=== PATIENT | female | born 1985 | race African-American/Black ===

== ENCOUNTER 2022-01-30 17:01 | Emergency (ER) | payer OTHER, SELFPAY ==
[2022-01-30 17:26] VITALS: BP 116/69; PULSE 76; RESP 16; TEMP 36.2; O2SAT 100
--- NOTE | 2022-01-30 18:17 | ED.SKABFB ---
HPI - Skin/Abscess/Foreign Bdy General Chief complaint: Skin/Abscess/Foreign Body Stated complaint: wound check Time Seen by Provider: 01/30/22 18:16 History of Present Illness HPI narrative: 6-year-old female presents to the emergency room for evaluation of multiple rashes on her lower extremities. Patient was seen at urgent care yesterday and was told that she had form of ringworm. Patient was prescribed 2 weeks of terbinafine. Presents today for second opinion. States the rash has been present for 4 days and is pruritic. Review of Systems Review of Systems: CONSTITUTIONAL: Denies fever, chills, or sweats. EYES: Denies visual changes, redness, or discharge. ENT: Denies rhinorrhea, congestion, sore throat, or otalgia. CARDIOVASCULAR: Denies chest pain, palpitations, or edema. RESPIRATORY: Denies cough or dyspnea. GASTROINTESTINAL: Denies abdominal pain, nausea, vomiting, or diarrhea. GENITOURINARY: Denies dysuria or hematuria. SKIN: Reports pruritic rash on legs MUSCULOSKELETAL: Denies back pain, joint pain, or myalgia. NEUROLOGIC: Denies headache, numbness, dizziness, or weakness. PSYCHIATRIC: Denies anxiety or depression. Exam Narrative: GENERAL: Well-appearing, well-nourished, no physical limitations, and in no acute distress. HEAD: Normocephalic, atraumatic. EYES: Conjunctivae normal, PERRLA and EOMI. CHEST: Clear to auscultation. No respiratory distress. No wheezes rales or rhonchi. No tenderness. HEART: Regular rate and rhythm. No murmur heard. Normal peripheral pulses. EXTREMITIES: Normal range of motion. No edema. No clubbing or cyanosis SKIN: Erythematous, ovular/circular lesions with central clearing and raised borders on bilateral lower extremities NEURO: No focal deficits. Alert and oriented x3. MAEW. CN's II-XI intact bilaterally, normal gait PSYCH: Cooperative. Normal mood and affect. Course Vital Signs Vital signs: Vital Signs Temperature 36.2 C L 01/30/22 17:26 Pulse Rate 76 01/30/22 17:26 Respiratory Rate 16 01/30/22 17:26 Blood Pressure 116/69 01/30/22 17:26 Pulse Oximetry 100 01/30/22 17:26 Oxygen Delivery Room Air 01/30/22 17:26 Temperature 36.2 C L 01/30/22 17:26 Pulse Rate 76 01/30/22 17:26 Respiratory Rate 16 01/30/22 17:26 Blood Pressure 116/69 01/30/22 17:26 Pulse Oximetry 100 01/30/22 17:26 Oxygen Delivery Room Air 01/30/22 17:26 Discharge Plan Discharge Clinical Impression: Tinea corporis Patient Disposition: Home, Self-Care Condition: Stable Instructions: Antibiotic Form, Tinea Corporis (ED) Prescriptions: New terbinafine HCl 250 mg tablet 250 mg PO DAILY Qty: 30 0RF clotrimazole [Lotrimin AF (clotrimazole)] 1 % cream 1 applic topical BID Qty: 30 1RF Follow-up/Referrals: Hector,Porsche Murillo, [employer] MANAGER-[employer] [Primary Care Provider] - Stand Alone Forms: Work/School Release IP Time of Disposition: 18:18
[2022-01-30 18:36] VITALS: BP 118/66; PULSE 68; RESP 16; TEMP 36.3; O2SAT 98
[2022-01-30 18:53] LABS: Alanine Aminotransferase 13 U/L (6-35); Albumin Level 4.1 g/dL (3.5-5.1); Alkaline Phosphatase 56 U/L (38-126); Anion Gap 8 mmol/L (8-16); Aspartate Amino Transferase 15 U/L (14-36); Bilirubin,Total 0.3 mg/dL (0.2-1.3); Blood Urea Nitrogen 10 mg/dL (7-17); Calcium 9.1 mg/dL (8.4-10.2); Carbon Dioxide 26 mmol/L (22-30); Chloride 105 mmol/L (98-107); Estimated CRCL calculation 82 ml/min; Estimated Glomerular Filt Rate > 60; Glucose 110 mg/dL (65-110); Potassium 4.4 mmol/L (3.4-5.0); Sodium 139 mmol/L (137-145)
== END 2022-01-30 18:37 | disposition home or self-care (01) ==
PROVIDERS: Emergency Provider Nurse Practitioner Family; PCP Nurse Practitioner Family
DX: B35.4 Tinea corporis (principal)
CPT/HCPCS: 36415; 80053; 99283

== ENCOUNTER 2022-04-08 08:27 | Emergency (ER) | payer OTHER, SELFPAY ==
[2022-04-08 08:37] VITALS: BP 122/66; PULSE 74; RESP 16; TEMP 36.7; O2SAT 100
--- NOTE | 2022-04-08 09:09 | ED.SKABFB ---
HPI - Skin/Abscess/Foreign Bdy General Chief complaint: Skin/Abscess/Foreign Body Stated complaint: boil? Time Seen by Provider: 04/08/22 08:59 Source: patient Mode of arrival: ambulatory Limitations: no limitations History of Present Illness HPI narrative: This is a 36 year old female that presents to the ER for a possible ingrown hair. Reports a small raised bump in her left groin area. Reports the area has gone down some in size, but is painful to touch. Denies fever, redness or drainage. Related Data Allergies Allergy/AdvReac Type Severity Reaction Status Date / Time No Known Allergies Allergy Verified 04/08/22 08:41 Review of Systems Review of Systems: CONSTITUTIONAL: Denies fever SKIN: Reports ingrown hair All systems reviewed & are unremarkable except as noted in HPI and below PMFSH Past Medical History Medical History (Updated 04/08/22 @ 09:16 by Allison Mireles PA-C) No active medical problems Social History Social History (Updated 04/08/22 @ 09:12 by Allison Mireles PA-C) Substance use: never Exam Narrative: GENERAL: Well-appearing, well-nourished, and in no acute distress. HEAD: Normocephalic, atraumatic. EYES: EOMI. CHEST: Clear to auscultation. No respiratory distress. No wheezes rales or rhonchi HEART: Regular rate and rhythm. No murmur heard. Normal peripheral pulses. EXTREMITIES: Normal range of motion. No edema. Left groin area with small (1cm) raised area, mildly tender to palpation, no fluctuance or erythema of the area SKIN: Warm, dry, no rash. NEURO: No focal deficits. Alert and oriented x3. PSYCH: Normal mood and affect Course Vital Signs Vital signs: Vital Signs Temperature 98.1 F 04/08/22 08:37 Pulse Rate 74 04/08/22 08:37 Respiratory Rate 16 04/08/22 08:37 Blood Pressure 122/66 04/08/22 08:37 Pulse Oximetry 100 04/08/22 08:37 Oxygen Delivery Room Air 04/08/22 08:37 Temperature 98.1 F 04/08/22 08:37 Pulse Rate 74 04/08/22 08:37 Respiratory Rate 16 04/08/22 08:37 Blood Pressure 122/66 04/08/22 08:37 Pulse Oximetry 100 04/08/22 08:37 Oxygen Delivery Room Air 04/08/22 08:37 MDM - Skin/Abscess/Foreign Bdy MDM Narrative Medical decision making narrative: Patient presents to the ER for an area of swelling to the left groin. There is a very small (1cm) raised lesion, that is not fluctuant. No overt signs of infection at this time. Will have patient clean the area with mild soap and water and use warm compresses to the area. Will prescribed a topical antibiotic. She was instructed to follow up with her PCP. She was given warnings to return to the ER Critical Care Time Critical Care Time Critical Care Time: No Discharge Plan Discharge Clinical Impression: Ingrown hair Patient Disposition: Home, Self-Care Condition: Stable Instructions: Antibiotic Form, Folliculitis (ED) Additional Instructions: Return to the emergency department if you experience fever, redness and swelling of your wound, abnormal drainage from your wound, or any other symptoms that are concerning to you Do not shave the area. Clean the area with mild soap and water and apply warm compresses as needed. Apply antibiotic ointment to the area twice daily for one week Follow-up with your primary care doctor Prescriptions: New mupirocin 2 % ointment 1 applic topical BID Qty: 15 0RF No Action terbinafine HCl 250 mg tablet 250 mg PO DAILY Qty: 30 0RF clotrimazole [Lotrimin AF (clotrimazole)] 1 % cream 1 applic topical BID Qty: 30 1RF Follow-up/Referrals: Hector,Porsche Murillo, SAFETY TRAINER-BC [Primary Care Provider] - 3 Days
== END 2022-04-08 10:09 | disposition home or self-care (01) ==
LOC: ANHED 09:29
PROVIDERS: Emergency Provider Emergency Medicine; PCP Nurse Practitioner Family
DX: L73.1 Pseudofolliculitis barbae (principal)
CPT/HCPCS: 99283

== ENCOUNTER 2022-04-24 17:28 | Emergency (ER) | payer OTHER, SELFPAY ==
[2022-04-24 17:37] VITALS: BP 135/69; PULSE 77; RESP 16; TEMP 36.4; O2SAT 100
--- NOTE | 2022-04-24 18:27 | ED.SKABFB ---
HPI - Skin/Abscess/Foreign Bdy General Chief complaint: Skin/Abscess/Foreign Body Stated complaint: Vaginal Problems Time Seen by Provider: 04/24/22 18:27 Source: patient, RN notes reviewed and old records reviewed Mode of arrival: ambulatory Limitations: no limitations History of Present Illness HPI narrative: 36-year-old female presents to the [facility] with complaints of ?a boil? to the left groin area the last 3 weeks. Was seen in the ER, did not follow-up with primary care provider. Has been applying Bactroban. Onset (ago): week(s) (3) Related Data Allergies Allergy/AdvReac Type Severity Reaction Status Date / Time No Known Allergies Allergy Verified 04/24/22 17:40 Review of Systems Review of Systems: All systems reviewed & are unremarkable except as noted in HPI and below Constitutional: Constitutional: Reports no additional constitutional complaints Eyes: Eyes: Reports no additional eye complaints ENT: Reports system reviewed and no additional complaints, except as documented Cardiovascular: Cardiovascular: Reports no additional cardiovascular complaints, Denies chest pain and Denies dyspnea Respiratory: Respiratory: Reports no additional respiratory complaints, Denies chest congestion, Denies cough and Denies dyspnea Gastrointestinal: Gastrointestinal: Reports no additional gastrointestinal complaints, Denies abdominal pain, Denies nausea and Denies vomiting Musculoskeletal: Musculoskeletal: Reports no additional musculoskeletal complaints Integumentary/Breasts: Skin/Breast: Reports as per HPI Neurologic: Reports system reviewed and no additional complaints, except as documented Psychiatric: Psychiatric: Reports no additional psychiatric complaints Allergic/Immunologic: Allergic/Immunologic: Reports no additional allergic/immunologic complaints PMF Past Medical History Medical History No active medical problems Social History Social History Substance use: never Comments At the time of my signature, I reviewed and agree with the nursing past medical, surgical, social, and family history. There is no relevant family history pertinent to the patient complaint. Exam Const: General: cooperative, healthy appearing, comfortable, no acute distress, well developed, alert, average body habitus and well nourished Nutritional Appearance: average body habitus and well nourished Orientation/consciousness: patient oriented x3 Limitations: no limitations HENMT: Head: normal to inspection Ears: hearing grossly normal bilaterally and external ears normal Face/Nose/Sinus: Normal external nose present, Normal nares present, Normal nasal mucous membranes and turbinates present and normal facial exam Face and sinus: normal facial exam Mouth: Yes Normal oral and palatal mucosa present, Yes lip normal and Yes moist mucous membranes Throat: uvula not midline Eyes: General: appearance normal, both eyes and all related structures Alignment and Position: alignment normal Periorbital: periorbital findings normal Conjunctivae: conjunctivae normal Pupils: Equal, round and reactive pupils present EOM: EOMs intact bilaterally Neck: Neck: normal visual inspection, full ROM, no lymphadenopathy and no meningeal signs Chest: Chest palpation & inspection: normal inspection of the chest Resp: Effort & Inspection: normal respiratory effort and able to speak in complete sentences Auscultation: clear to auscultation bilaterally, no crackles, no rales, no rhonchi and no wheezes Cardio: Rate: regular rate Rhythm: regular rhythm GI: Inspection: normal to inspection GI Palp: No abdominal tenderness Back/Spine/Pelvis: Cervical Spine: cervical ROM normal Thoracic/Lumbar Spine: No thoracic spinal tenderness Skin: General skin exam: normal color and no rashes or lesions noted Rashes: no rashes Wounds: no wounds Othe
== END 2022-04-24 19:16 | disposition home or self-care (01) ==
PROVIDERS: Emergency Provider Nurse Practitioner; PCP Nurse Practitioner Family
DX: L02.214 Cutaneous abscess of groin (principal)
CPT/HCPCS: 10060; 87070; 87205; 99213; G0463

== ENCOUNTER 2022-04-29 18:56 | Emergency (ER) | payer OTHER, SELFPAY ==
[2022-04-29 19:16] VITALS: BP 120/62; PULSE 67; RESP 18; TEMP 36.6; O2SAT 97
--- NOTE | 2022-04-29 19:30 | ED.SKABFB ---
HPI - Skin/Abscess/Foreign Bdy General Chief complaint: Skin/Abscess/Foreign Body Stated complaint: ingrown hair Time Seen by Provider: 04/29/22 19:30 Source: patient and RN notes reviewed Mode of arrival: ambulatory Limitations: no limitations History of Present Illness HPI narrative: 36-year-old female presents concern for possible ingrown hair. Reports she has this ongoing for several weeks, she was seen in the emergency room in March and was given Bactroban, she re-presented to the [facility] 5 days ago and had the area incised and drained with purulence drainage and was given Bactrim. Her culture did not grow any bacteria. She reports she started noticing irritation in the area again today, she denies pain, drainage. Reports she felt a small bump. She denies current fever, chills, aches, sweats MD complaint: abscess/boil Related Data Allergies Allergy/AdvReac Type Severity Reaction Status Date / Time No Known Allergies Allergy Verified 04/29/22 19:37 Review of Systems Review of Systems: CONSTITUTIONAL: Denies malaise, chills, sweats, or fever. EYES: Denies redness, or discharge. ENT: Denies rhinorrhea, congestion, swollen lips, swollen tongue CARDIOVASCULAR: Denies chest pain, palpitations, or edema. RESPIRATORY: Denies cough or dyspnea. GASTROINTESTINAL: Denies abdominal pain, nausea, vomiting SKIN: Reports small irritated bump in her MUSCULOSKELETAL: Denies joint pain or myalgia. NEUROLOGIC: Denies headache. All systems reviewed & are unremarkable except as noted in HPI and below PMFSH Past Medical History Medical History No active medical problems Social History Social History Substance use: never Comments At time of signature, agree with nursing past medical, surgical, social and family history. There is no relevant family history pertinent to the presenting complaint Exam Narrative: GENERAL: Well-appearing, well-nourished, and in no acute distress. HEAD: Normocephalic, atraumatic. EYES: PERRLA, conjunctivae clear ENT: Mucous membranes moist. NECK: Supple. No lymphadenopathy CHEST: Clear to auscultation. No respiratory distress. HEART: Regular rate and rhythm. SKIN: Warm, dry. 1 cm x 0.5 cm raised, skin colored nodule with pinpoint amount of fluctuance noted in the fall of the left groin. NEURO: Alert and oriented x3. PSYCH: Normal mood and affect Course Course Emergency Course: Discussed options with patient, benefits and risks of opening the small area again with only a pinpoint amount of fluctuance, versus applying warm compresses and following up with General surgery for re-evaluation. There is currently no evidence of infection, no redness, warmth, tenderness. Patient would prefer to follow-up with general surgery not have the area opened today Patient is aware of diagnosis, understands and agrees to treatment plan. Anticipatory guidance given. Patient agrees to follow-up as directed and is aware of reasons to seek care at the emergency department. Portions of this record may have been created with voice recognition software Level of Care: Express Care Visit Vital Signs Vital signs: Reviewed. MDM - Skin/Abscess/Foreign Bdy MDM Narrative Medical decision making narrative: Exam findings show no acute concerns or changes; patient is non-toxic appearing and is in no distress. Patient is appropriate for outpatient treatment and follow-up. Differential Diagnosis Differential diagnosis: Likely abscess of skin or subcutaneous tissue, herpes zoster, cellulitis and other (Cyst, ingrown hair) Critical Care Time Critical Care Time Critical Care Time: No Discharge Plan Discharge Clinical Impression: Groin cyst Patient Disposition: Home, Self-Care Condition: Stable Instructions: Cyst (ED) Additional Instructions: Apply warm moist compress to the area, take ibuprofe
== END 2022-04-29 19:43 | disposition home or self-care (01) ==
PROVIDERS: Emergency Provider Nurse Practitioner; PCP Nurse Practitioner Family
DX: L72.9 Follicular cyst of the skin and subcutaneous tissue, unspecified (principal)
CPT/HCPCS: 99211; G0463

== ENCOUNTER 2022-07-03 16:41 | Emergency (ER) | payer OTHER, SELFPAY ==
[2022-07-03 16:48] VITALS: BP 124/57; PULSE 90; RESP 16; TEMP 36.4; O2SAT 100
--- NOTE | 2022-07-03 17:10 | ED.EAR ---
HPI - Ear Problem General Chief complaint: Ear Stated complaint: Right Ear Irritation Time Seen by Provider: 07/03/22 17:10 Source: patient, RN notes reviewed and old records reviewed Mode of arrival: ambulatory Limitations: no limitations History of Present Illness HPI Narrative: 36-year-old female presents to the [facility] with complaints of right ear pain since yesterday. Has been placing peroxide. Does use Q-tips. Related Data Allergies Allergy/AdvReac Type Severity Reaction Status Date / Time No Known Allergies Allergy Verified 07/03/22 16:44 Review of Systems Review of Systems: All systems reviewed & are unremarkable except as noted in HPI and below Constitutional: Constitutional: Reports no additional constitutional complaints Eyes: Eyes: Reports no additional eye complaints ENT: Reports as per HPI Cardiovascular: Cardiovascular: Reports no additional cardiovascular complaints, Denies chest pain and Denies dyspnea Respiratory: Respiratory: Reports no additional respiratory complaints, Denies chest congestion, Denies cough and Denies dyspnea Gastrointestinal: Gastrointestinal: Reports no additional gastrointestinal complaints, Denies abdominal pain, Denies nausea and Denies vomiting Musculoskeletal: Musculoskeletal: Reports no additional musculoskeletal complaints Integumentary/Breasts: Skin/Breast: Reports system reviewed and no additional complaints, except as docu Neurologic: Reports system reviewed and no additional complaints, except as documented Psychiatric: Psychiatric: Reports no additional psychiatric complaints Allergic/Immunologic: Allergic/Immunologic: Reports no additional allergic/immunologic complaints PMFSH Past Medical History Medical History No active medical problems Social History Social History Substance use: never Comments At the time of my signature, I reviewed and agree with the nursing past medical, surgical, social, and family history. There is no relevant family history pertinent to the patient complaint. Exam Const: General: cooperative, healthy appearing, comfortable, no acute distress, well developed, alert and well nourished Nutritional Appearance: well nourished Orientation/consciousness: patient oriented x3 Limitations: no limitations HENMT: Head: normal to inspection Ears: hearing grossly normal bilaterally, external ears normal, TM's normal bilaterally and Abnormal EAC present erythema on the right (Abrasion noted between 9 and 6 of the ear canal) and EAC tenderness on the right; no foreign body and no otic discharge Face/Nose/Sinus: Normal external nose present, Normal nares present, Normal nasal mucous membranes and turbinates present and normal facial exam Face and sinus: normal facial exam Mouth: Yes Normal oral and palatal mucosa present, Yes lip normal and Yes moist mucous membranes Throat: posterior oropharynx normal and uvula midline Eyes: General: appearance normal, both eyes and all related structures Alignment and Position: alignment normal Periorbital: periorbital findings normal Conjunctivae: conjunctivae normal Pupils: Equal, round and reactive pupils present EOM: EOMs intact bilaterally Neck: Neck: normal visual inspection, full ROM, no lymphadenopathy and no meningeal signs Chest: Chest palpation & inspection: normal inspection of the chest Resp: Effort & Inspection: normal respiratory effort and able to speak in complete sentences Auscultation: clear to auscultation bilaterally, no crackles, no rales, no rhonchi and no wheezes Cardio: Rate: regular rate Rhythm: regular rhythm Back/Spine/Pelvis: Cervical Spine: cervical ROM normal Thoracic/Lumbar Spine: No thoracic spinal tenderness Skin: General skin exam: normal color and no rashes or lesions noted Lesions: no lesions Rashes: no rashes Wounds: no wounds Neuro: General:
== END 2022-07-03 17:25 | disposition home or self-care (01) ==
PROVIDERS: Emergency Provider Nurse Practitioner; PCP Nurse Practitioner Family
DX: S00.411A Abrasion of right ear, initial encounter (principal); X58.XXXA Exposure to other specified factors, initial encounter
CPT/HCPCS: 99213; G0463

== ENCOUNTER 2022-07-06 06:23 | Emergency (ER) | payer OTHER, SELFPAY ==
[2022-07-06 06:34] VITALS: BP 128/77; PULSE 76; RESP 16; TEMP 36.7; O2SAT 100
--- NOTE | 2022-07-06 09:19 | ED.GENADULT ---
HPI - General Adult General Chief complaint: Ear Stated complaint: ear ache getting worse Time Seen by Provider: 07/06/22 08:18 History of Present Illness HPI narrative: 36-year-old female presenting to the emergency department for evaluation of sinus pain, right ear pain and sore throat. Patient states that the symptoms did start a few days ago. Patient was evaluated at a prompt care and was started on eardrops. Patient states that her ear pain continues to worsen. Related Data Allergies Allergy/AdvReac Type Severity Reaction Status Date / Time No Known Allergies Allergy Verified 07/03/22 16:44 Review of Systems Review of Systems: CONSTITUTIONAL: Denies fever, chills, or sweats. EYES: Denies visual changes, redness, or discharge. ENT: See HPI SKIN: Denies rash or itching. MUSCULOSKELETAL: Denies back pain, joint pain, or myalgia. NEUROLOGIC: Denies headache, numbness, or weakness. PMFSH Past Medical History Medical History No active medical problems Social History Social History Substance use: never Exam Narrative: APPEARANCE: Well appearing, no pain, no distress, well-nourished. HEAD: Tenderness over the frontal sinuses EYES: PERRLA/EOMI, conjunctivae clear. NOSE: Normal no drainage EARS:TMS clear with good light reflex. THROAT: Pharynx clear, no exudate. NECK: Supple. Lymphadenopathy bilaterally RESPIRATORY: Airway patent, respirations nonlabored. Clear to auscultation bilaterally, no rales, rhonchi, wheezing. CARDIOVASCULAR: Regular rate and rhythm without murmurs rubs or gallops. SKIN: Warm, dry. Normal Color Course Course Emergency Course: 36-year-old female with sinus pain and sore throat. Suspect sinusitis or possible underlying viral etiology. Will be treated with Augmentin for sinus infection. This would also cover a bacterial strep throat or a worsening of otitis media. COVID and strep throat were ordered but patient will be treated with antibiotics regardless of the results of the swab due to the concern for sinusitis. Patient was also advised to take [id number] medications for pain control and a mild decongestant. Vital Signs Vital signs: Vital Signs Temperature 98.0 F 07/06/22 06:34 Pulse Rate 76 07/06/22 06:34 Respiratory Rate 16 07/06/22 06:34 Blood Pressure 128/77 07/06/22 06:34 Pulse Oximetry 100 07/06/22 06:34 Oxygen Delivery Room Air 07/06/22 06:34 Temperature 98.0 F 07/06/22 06:34 Pulse Rate 67 07/06/22 09:56 Respiratory Rate 18 07/06/22 09:56 Blood Pressure 129/96 H 07/06/22 09:56 Pulse Oximetry 100 07/06/22 09:56 Oxygen Delivery Room Air 07/06/22 06:34 Medical Decision Making Vital Signs Vital Signs: Vital Signs Temperature 98.0 F 07/06/22 06:34 Pulse Rate 76 07/06/22 06:34 Respiratory Rate 16 07/06/22 06:34 Blood Pressure 128/77 07/06/22 06:34 Pulse Oximetry 100 07/06/22 06:34 Oxygen Delivery Room Air 07/06/22 06:34 Temperature 98.0 F 07/06/22 06:34 Pulse Rate 67 07/06/22 09:56 Respiratory Rate 18 07/06/22 09:56 Blood Pressure 129/96 H 07/06/22 09:56 Pulse Oximetry 100 07/06/22 09:56 Oxygen Delivery Room Air 07/06/22 06:34 Lab Data Lab results reviewed: Yes I reviewed the patient's lab results. Labs: Lab Results 07/06/22 07/06/22 Range/Units 09:30 09:30 Influenza A (RT-PCR) Negative (Negative) Influenza B (RT-PCR) Negative (Negative) RSV (RT-PCR) Negative (Negative) SARS-CoV-2 RNA (RT-PCR) Negative Group A Strep (PCR) Not detected (Negative) Discharge Plan Discharge Clinical Impression: Otalgia of right ear, Acute sore throat Sinusitis Qualifiers: Sinusitis location: frontal Chronicity: acute Recurrence: not specified as recurrent Qualified Code(s): J01.10 - Acute frontal sinusitis, unspecified Patient Disp
[2022-07-06] MEDS: AMOXICILLIN/CLAVULANATE K 875-125 MG TAB 1 TABLET PO (09:54)
[2022-07-06 09:56] VITALS: BP 129/96; PULSE 67; RESP 18; O2SAT 100
[2022-07-06 09:59] LABS: Strep Group A RT-PCR NOT DETECTED (Negative)
[2022-07-06 10:13] LABS: Influenza A QL RT-PCR Negative (Negative); Influenza B QL RT-PCR Negative (Negative); RSV RNA, RT-PCR Negative (Negative); SARS-CoV-2 RNA PCR Negative
== END 2022-07-06 10:26 | disposition home or self-care (01) ==
PROVIDERS: Emergency Provider Emergency Medicine; PCP Nurse Practitioner Family
DX: J02.9 Acute pharyngitis, unspecified (principal); J01.10 Acute frontal sinusitis, unspecified; H92.01 Otalgia, right ear; Z20.822 Contact with and (suspected) exposure to COVID-19
CPT/HCPCS: 87637; 87651; 99283; A9270

== ENCOUNTER 2022-08-03 15:57 | Emergency (ER) | payer OTHER, SELFPAY ==
[2022-08-03 16:22] VITALS: BP 142/85; PULSE 75; RESP 16; TEMP 37.1; O2SAT 99
--- NOTE | 2022-08-03 16:36 | ED.FEVER ---
HPI - Fever General Chief Complaint: Fever Stated Complaint: Fever Time Seen by Provider: 08/03/22 16:38 Source: patient Mode of arrival: ambulatory Limitations: no limitations History of Present Illness HPI Narrative: 36 y/o female presented for c/o right ear pain and sore throat since yesterday. Endorses the ear sounds like water moving with intermittent sharp pain. Endorses mild sinus congestion and fever of 99.1 today. Denies tinnitus, dizziness, nausea, vomiting, shortness of breath or wheezing. Patient was treated about 4 weeks ago for ear infection and completed abx and drops. Related Data Home Medications Medication Instructions Recorded Confirmed metronidazole 0.75 % (37.5 mg/5 vaginal 08/03/22 gram) vaginal gel tretinoin 0.025 % topical cream applic topical 08/03/22 Allergies Allergy/AdvReac Type Severity Reaction Status Date / Time No Known Allergies Allergy Verified 08/03/22 16:10 Review of Systems Review of Systems: CONSTITUTIONAL: Denies malaise, chills, or fever. EYES: Denies visual changes, redness, or discharge. ENT: Denies rhinorrhea, congestion, sinus pain, Reports ear pain and sore throat. CARDIOVASCULAR: Denies chest pain, palpitations, or edema. RESPIRATORY: Denies cough or dyspnea. GASTROINTESTINAL: Denies abdominal pain, nausea, vomiting, diarrhea SKIN: Denies rash or itching. MUSCULOSKELETAL: Denies myalgia. All systems reviewed & are unremarkable except as noted in HPI and below PMFSH Past Medical History Medical History No active medical problems Social History Social History Substance use: never Comments At time of signature, agree with nursing past medical, surgical, social and family history. There is no relevant family history pertinent to the presenting complaint Exam Narrative: GENERAL: Well-appearing; no acute distress. HEAD: Normocephalic EYES: PERRLA, conjunctivae clear ENT: Nares clear. Mucous membranes moist. TMs pearly gonzalez with light reflex bilaterally, right TM with clear effusion; no tragal tenderness. Oropharynx erythematous without lesions. Mild tonsillar swelling no drooling, no hoarseness, no trismus, uvula midline. NECK: Supple. No lymphadenopathy, tenderness right neck reported CHEST: Clear to auscultation, breath sounds equal. No wheezing, rhonchi, rales, or stridor. No respiratory distress, speaks in full sentences. HEART: Regular rate and rhythm. No murmur heard. SKIN: Warm, dry, no rash. NEURO: Alert and oriented x3. PSYCH: Normal mood and affect Course Course Emergency Course: Patient is aware of diagnosis, understands and agrees to treatment plan. Anticipatory guidance given. Patient agrees to follow-up as directed and is aware of reasons to seek care at the emergency department. Portions of this record may have been created with voice recognition software Level of Care: Express Care Visit Vital Signs Vital signs: Vital Signs Temperature 98.8 F 08/03/22 16:22 Pulse Rate 75 08/03/22 16:22 Respiratory Rate 16 08/03/22 16:22 Blood Pressure 142/85 H 08/03/22 16:22 Pulse Oximetry 99 08/03/22 16:22 Oxygen Delivery Room Air 08/03/22 16:22 Temperature 98.8 F 08/03/22 16:22 Pulse Rate 75 08/03/22 16:22 Respiratory Rate 16 08/03/22 16:22 Blood Pressure 142/85 H 08/03/22 16:22 Pulse Oximetry 99 08/03/22 16:22 Oxygen Delivery Room Air 08/03/22 16:22 Reviewed MDM - Fever MDM Narrative Medical decision making narrative: Strep result reviewed with patient. Advised supportive measures and signs/symptoms to go to the ER. Pt is appropriate for outpt treatment and f/u. Differential Diagnosis Differential diagnosis: Likely other (Influenza, covid, sinusitis, OM, strep pharyngitis, URI) Lab Data Labs: Strep Screen Positive Group A Strep
== END 2022-08-03 17:06 | disposition home or self-care (01) ==
PROVIDERS: Emergency Provider Nurse Practitioner Family; PCP Nurse Practitioner Family
DX: J02.0 Streptococcal pharyngitis (principal)
CPT/HCPCS: 87880; 99213; G0463

== ENCOUNTER 2023-08-15 11:21 | Emergency (ER) | payer OTHER, SELFPAY ==
[2023-08-15 11:29] VITALS: BP 123/71; PULSE 74; RESP 16; TEMP 36.6; O2SAT 99
--- NOTE | 2023-08-15 11:42 | ED.EYEPROB ---
HPI - Eye Problem General Chief complaint: Eye Problems Stated complaint: Left Eye Irritation Time Seen by Provider: 08/15/23 11:42 Source: patient Mode of arrival: ambulatory Limitations: no limitations History of Present Illness HPI Narrative: 37-year-old female presents with complaint of swelling, redness and pain to left lower eyelid. Is concerned for stye. Denies vision change. All systems reviewed and negative except as noted above. Related Data Allergies Allergy/AdvReac Type Severity Reaction Status Date / Time No Known Allergies Allergy Verified 08/03/22 16:10 Review of Systems Review of Systems: CONSTITUTIONAL: Denies fever, chills, or sweats. EYES: Denies visual changes, redness, or discharge. Reports redness, swelling and pain to left lower eyelid. ENT: Denies rhinorrhea, congestion, sore throat, or otalgia. CARDIOVASCULAR: Denies chest pain, palpitations, or edema. RESPIRATORY: Denies cough or dyspnea. GASTROINTESTINAL: Denies abdominal pain, nausea, vomiting, or diarrhea. GENITOURINARY: Denies dysuria or hematuria. SKIN: Denies rash or itching. MUSCULOSKELETAL: Denies back pain, joint pain, or myalgia. NEUROLOGIC: Denies headache, numbness, or weakness. PSYCHIATRIC: Denies anxiety or depression. All other systems reviewed are negative, except as documented in HPI. PMFSH Past Medical History Medical History No active medical problems Social History Social History Substance use: never Comments At time of signature, agree with nursing past medical, surgical, social and family history. There is no relevant family history pertinent to the presenting complaint. Exam Narrative: GENERAL: This is a well-nourished, well-developed patient, in no apparent distress. HEAD: normocephalic, atraumatic. EYES: PERRL. Sclera clear/white. Vision is grossly intact. internal hordeolum to L lower eyelid. erythema with pustule. EARS: External ears normal NOSE: External nose normal NECK: Neck supple, non-tender without lymphadenopathy, masses or thyromegaly. CARDIOVASCULAR: Regular rate and rhythm without murmurs, gallops, or rubs. RESPIRATORY: Clear to auscultation. Breath sounds equal bilaterally. No wheezes, rales, or rhonchi. SKIN: warm, Dry, intact with no suspicious lesions or rash, good texture and turgor. NEURO: awake, alert, and oriented to person, place and time. There were no obvious focal neurologic abnormalities. EXTREMITIES: No joint tenderness, effusion, or edema noted. Course Course Level of Care: Express Care Visit Vital Signs Vital signs: Vital Signs Temperature 36.6 C 08/15/23 11:29 Pulse Rate 74 08/15/23 11:29 Respiratory Rate 16 08/15/23 11:29 Blood Pressure 123/71 08/15/23 11:29 Pulse Oximetry 99 08/15/23 11:29 Oxygen Delivery Room Air 08/15/23 11:29 Temperature 36.6 C 08/15/23 11:29 Pulse Rate 74 08/15/23 11:29 Respiratory Rate 16 08/15/23 11:29 Blood Pressure 123/71 08/15/23 11:29 Pulse Oximetry 99 08/15/23 11:29 Oxygen Delivery Room Air 08/15/23 11:29 Reviewed MDM - Eye Problem MDM Narrative Medical decision making narrative: Patient is aware of diagnosis, understands and agrees to treatment plan. Anticipatory guidance given. Patient agrees to follow-up as directed and is aware of reasons to seek care at the emergency department. Portions of this record may have been created with voice recognition software Discharge Plan Discharge Clinical Impression: Internal hordeolum of left eye Qualifiers: Eyelid: lower Qualified Code(s): H00.025 - Hordeolum internum left lower eyelid Patient Disposition: Home, Self-Care Condition: Stable Instructions: Emily Oliveira (ED) Additional Instructions: Place antibiotic ointment as prescribed. Wash hands before and after placing ointment. Jose
== END 2023-08-15 11:53 | disposition home or self-care (01) ==
PROVIDERS: Emergency Provider Nurse Practitioner Family; PCP Family Medicine
DX: H00.025 Hordeolum internum left lower eyelid (principal)
CPT/HCPCS: 99213; G0463

== ENCOUNTER 2023-10-05 07:59 | Emergency (ER) | payer OTHER, SELFPAY ==
[2023-10-05] VITALS (13 sets, daily range): BP systolic 138–152; BP diastolic 76–96; PULSE 69–82; RESP 16–19; TEMP 36.7; O2SAT 94–100
--- NOTE | ~2023-10-05 | XR_ITS ---
AP and lateral views of the right femur Clinical History: Pain Findings: No acute fracture or dislocation is seen. Osseous alignment is anatomic. Visualized joint s paces are grossly preserved. Soft tissues are unremarkable. Impression: Unremarkable right femoral radiographs. Reviewed, dictated and finalized at location M. Impression: Unremarkable right femoral radiographs.
--- NOTE | ~2023-10-05 | XR_ITS ---
AP and lateral views of the right tibia/fibula Clinical History: Trauma Findings: No acute fracture or dislocation is seen. Osseous alignment is anatomic. Joint spaces are p reserved without significant erosive or degenerative change. Soft tissues are unremarkable. Impression: Unremarkable right tib-fib radiographs. Reviewed, dictated and finalized at [facility]. Impression: Unremarkable right tib-fib radiographs.
--- NOTE | ~2023-10-05 | XR_ITS ---
EXAMINATION: XR knee RT 3V DATE: 10/05/2023 09:09 INDICATION: Distal femoral pain post trauma TECHNIQUE: Anteroposterior, oblique and crosstable lateral views of the right knee were obtained COMPARISON: None. FINDINGS: Alignment is normal. No fracture. Joint spaces appear normal on nonweightbearing imaging. No joint e ffusion/layering lipohemarthrosis. Soft tissues are unremarkable. IMPRESSION: 1. Negative right knee radiographs. Reviewed, dictated and finalized at location A.
[2023-10-05] MEDS: HYDROmorphone HCL INJ (*CRX) 1 MG/ML SYR 0.5 MG IV PUSH (08:32)
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
[2023-10-05] MEDS: KETOROLAC 15 MG/ML VIAL (*BKC) IV PUSH (11:24)
== END 2023-10-05 11:35 | disposition home or self-care (01) ==
PROVIDERS: Emergency Provider Emergency Medicine; PCP Family Medicine
DX: S89.91XA Unspecified injury of right lower leg, initial encounter (principal); V03.10XA Pedestrian on foot injured in collision with car, pick-up truck or van in traffic accident, initial encounter
CPT/HCPCS: 73552; 73562; 73590; 96374; 96375; 99284; J1170; J1885

== ENCOUNTER 2023-11-03 13:01 | Outpatient (CLI) | payer OTHER, SELFPAY ==
--- NOTE | ~2023-11-03 | MR_ITS ---
EXAMINATION: MR knee RT wo con DATE: 11/03/2023 13:40 INDICATION: Medial meniscal tear with 3 weeks of right knee pain, catching and locking TECHNIQUE: Magnetic resonance imaging (MRI) of the right knee was performed without intravenous contr ast. Sequences included coronal PD-weighted FSE, coronal PD-weighted FS FSE, sagittal T2-weighted FS E, sagittal PD-weighted FS FSE and axial PD weighted fat saturated FSE. COMPARISON: None. FINDINGS: Medial compartment: Medial meniscus is normal. Articular cartilage is normal. Lateral compartment: Lateral meniscus is normal. Articular cartilage is normal. Patellofemoral compartment: Articular cartilage is normal. Ligaments and tendons: Anterior and posterior cruciate ligaments are normal. The fibular collateral ligament complex is norm al. There is increased fluid signal along the deep and superficial margins of the otherwise normal-ap pearing mid to distal medial collateral ligament consistent with likely low-grade sprain. The extenso r mechanism is normal. There are is prominent subcutaneous edema along the posterior margin of the pe s anserinus with suggestion of a partial tear involving a minimal cross-sectional area of the gracili s tendon approximately 5-6 cm from its tibial insertion. Remaining visceral hamstring tendons are nor mal. Fluid: Physiologic amount of fluid in the joint space. No loose osteochondral bodies identified. Osseous/other: There is marrow edema without associated fracture lines along the lateral sulcus of the lateral femor al condyle as well as the juxtaposed anterior margin of the lateral tibial plateau consistent with li arnav bone contusions in setting of a hyperextension and valgus injury. Additional subarticular bone c ontusion at the tibial side of the proximal tibiofibular articulation. No fracture or pathologic bobby ow replacing process. IMPRESSION: 1. Findings consistent with a hyperextension valgus injury pattern with low-grade sprain of the dista l medial collateral ligament and with bone contusions at the lateral sulcus of the lateral femoral co ndyle and anterior rim of the lateral tibial plateau. Additional tibial bone contusion underlying the articular surface at the proximal tibiofibular joint. 2. Mild partial tear along the gracilis tendon. Reviewed, dictated and finalized at location A. IMPRESSION: 1. Findings consistent with a hyperextension valgus injury pattern with low-gra de sprain of the distal medial collateral ligament and with bone contusions at the lateral sulcus of the lateral femoral condyle and anterior rim of the later al tibial plateau. Additional tibial bone contusion underlying the articular pena rface at the proximal tibiofibular joint. 2. Mild partial tear along the gracilis tendon.
== END 2023-11-03 13:02 | disposition home or self-care (01) ==
LOC: ANHIMG 13:01
PROVIDERS: PCP Family Medicine; Visit Provider Orthopaedic Surgery
DX: S83.241A Other tear of medial meniscus, current injury, right knee, initial encounter (principal)
CPT/HCPCS: 73721

== ENCOUNTER 2024-04-14 18:05 | Emergency (ER) | payer OTHER, SELFPAY ==
[2024-04-14 18:19] VITALS: BP 117/68; PULSE 76; RESP 16; TEMP 36.5; O2SAT 98
--- NOTE | 2024-04-14 18:24 | ED_ITS ---
HPI - Ear Problem General Chief complaint: Ear Stated complaint: r ear ache/tooth pain Time Seen by Provider: 04/14/24 18:24 Source: patient, RN notes reviewed and old records reviewed Mode of arrival: ambulatory Limitations: no limitations History of Present Illness HPI Narrative: 38-year-old female presents to the [facility] with complaints of right upper dental pain, right ear pain, headache since Sunday, 2 days. Reports that she does have and a dental appointment on Sunday with family dental in [place] Related Data Allergies Allergy/AdvReac Type Severity Reaction Status Date / Time No Known Allergies Allergy Verified 04/14/24 18:09 Review of Systems Review of Systems: All systems reviewed & are unremarkable except as noted in HPI and below Constitutional: Constitutional: Reports no additional constitutional complaints ENT: Reports as per HPI, Reports dental pain and Reports otalgia Cardiovascular: Cardiovascular: Reports no additional cardiovascular complaints, Denies chest pain and Denies dyspnea Respiratory: Respiratory: Reports no additional respiratory complaints, Denies chest congestion, Denies cough and Denies dyspnea Gastrointestinal: Gastrointestinal: Reports no additional gastrointestinal complaints, Denies abdominal pain, Denies nausea and Denies vomiting Musculoskeletal: Musculoskeletal: Reports no additional musculoskeletal complaints Integumentary/Breasts: Skin/Breast: Reports system reviewed and no additional complaints, except as docu PMFSH Past Medical History Medical History No active medical problems Social History Social History Smoking status: Never smoker Alcohol intake: current Substance use: current Substance use type: marijuana Do You Feel Safe in your Home?: Yes Lack of Transportation: No Lack of Food: Sometimes True Current Housing: I Have Housing Concerned About Future Housing: No Difficulty Paying Gas/Electric Bills: No Difficulty Paying for Meds: YES Currently Unemployed: No Education: Trade/Vocational Certificate Difficulty w/ Childcare or Family Care: No Living arrangements: with family Occupation/Education: 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 There is no relevant family history pertinent to the patient complaint. Exam Const: General: cooperative, healthy appearing, comfortable, no acute distress, well developed, alert and well nourished Nutritional Appearance: well nourished Orientation/consciousness: patient oriented x3 Limitations: no limitations HENMT: Head: normal to inspection Ears: hearing grossly normal bilaterally, external ears normal, TM's normal bilaterally, EAC's normal, mastoids normal and no periauricular adenopathy Face/Nose/Sinus: Normal external nose present, normal facial exam and face symmetric Face and sinus: normal facial exam and face symmetric Mouth: Yes Normal oral and palatal mucosa present, Yes lip normal and Yes tongue normal Teeth and gingiva: fair dentition and gingiva abnormal (Right upper, mild inflammation to the right upper molars) Throat: posterior oropharynx normal, uvula midline and no uvular edema Eyes: General: appearance normal, both eyes and all related structures Alignment and Position: alignment normal Periorbital: periorbital findings normal Neck: Neck: normal visual inspection, full ROM, no lymphadenopathy and no meningeal signs Chest: Chest palpation & inspection: normal inspection of the chest Resp: Effort & Inspection: normal respiratory effort and able to speak in complete sentences Auscultation: clear to auscultation bilaterally, no crackles, no rales, no rhonchi and no wheezes Cardio: Rate: regular rate Skin: General skin exam: normal color and no rashes or lesions noted Lesions: no lesions Rashes: no rashes Wounds: no wounds Neuro: General: patient oriented x3, gait normal, tone normal, moves all extremities and no meningeal signs Cognition (Neuro): normal cognition Speech: normal speech Gait exam (Neuro): Normal gait present Extrem: General: normal to inspection, full ROM, capillary refill normal and normal gait Psych: Appearance: grossly normal and well kempt Mental Status: mental status grossly normal Speech and movement: Normal speech and movement present and Clear speech present Affect: normal affect Attitude: cooperative Course Course Level of Care: Express Care Visit Vital Signs Vital signs: Vital Signs Temperature 97.7 F 04/14/24 18:19 Pulse Rate 76 04/14/24 18:19 Respiratory Rate 16 04/14/24 18:19 Blood Pressure 117/68 04/14/24 18:19 Pulse Oximetry 98 04/14/24 18:19 Oxygen Delivery Room Air 04/14/24 18:19 Temperature 97.7 F 04/14/24 18:19 Pulse Rate 76 04/14/24 18:19 Respiratory Rate 16 04/14/24 18:19 Blood Pressure 117/68 04/14/24 18:19 Pulse Oximetry 98 04/14/24 18:19 Oxygen Delivery Room Air 04/14/24 18:19 Reviewed Medical Decision Making MDM Narrative Medical decision making narrative: Patient sitting comfortably in exam room. Nontoxic, vitals stable. Patient in no acute distress Patient presents for ear pain, headache, dental discomfort. Has a dental appointment scheduled already. Patient appropriate for outpatient treatment and follow-up Discharge instructions reviewed with patient, as well as provided in writing per nursing staff. The instructions also include specific and strict return/GO TO THE ER as well as f/u information. All questions have been answered, and the patient deny any further questions with discharge and discharge plan. Some parts of this dictation were generated by voice recognition software and may contain typographical and/or grammatical inaccuracies. Differential Diagnosis Differential Diagnosis: Dental abscess, dental pain, dental infection, otitis media, URI Medical Records Medical records reviewed: Yes I reviewed the external patient's medical records. Vital Signs Vital Signs: Vital Signs Temperature 97.7 F 04/14/24 18:19 Pulse Rate 76 04/14/24 18:19 Respiratory Rate 16 04/14/24 18:19 Blood Pressure 117/68 04/14/24 18:19 Pulse Oximetry 98 04/14/24 18:19 Oxygen Delivery Room Air 04/14/24 18:19 Temperature 97.7 F 04/14/24 18:19 Pulse Rate 76 04/14/24 18:19 Respiratory Rate 16 04/14/24 18:19 Blood Pressure 117/68 04/14/24 18:19 Pulse Oximetry 98 04/14/24 18:19 Oxygen Delivery Room Air 04/14/24 18:19 Reviewed Lab Data Lab results reviewed: Yes I reviewed the patient's lab results. Labs: Reviewed Critical Care Time Critical Care Time Critical Care Time: No Discharge Plan Discharge Clinical Impression: Earache on right, Pain, dental Patient Disposition: Home, Self-Care Condition: Stable Instructions: Antibiotic Form, Earache (ED), Toothache (ED) Additional Instructions: Finish the entire course of antibiotics & use the mouthwash. After every time you eat be sure to use salt water rinses. Apply ice to face to help with pain. Take Tylenol alternating with Motrin as needed for pain. You can alternate every 4 hours You need to follow-up with a dental provider as soon as possible for further evaluation and treatment. Follow up with a Primary Care Provider (PCP) about medical needs. A PCP can help keep you healthy by preventive medicine and screening. Go to the ER for New or worsening symptoms. Patient Language: Irish Prescriptions: New amoxicillin 875 mg tablet 875 mg PO Q12H Qty: 20 0RF Follow-up/Referrals: Maureen Salgado MD [Primary Care Provider] - 2 Weeks ([facility] care follow up) Stand Alone Forms: Work/School Release IP Time of Disposition: 18:51
== END 2024-04-14 18:55 | disposition home or self-care (01) ==
PROVIDERS: Emergency Provider Nurse Practitioner; PCP Family Medicine
DX: H92.01 Otalgia, right ear (principal); K08.89 Other specified disorders of teeth and supporting structures; F12.90 Cannabis use, unspecified, uncomplicated
CPT/HCPCS: 99213; G0463

== ENCOUNTER 2024-09-19 17:25 | Emergency (ER) | payer OTHER, SELFPAY ==
[2024-09-19 17:37] VITALS: BP 130/73; PULSE 66; RESP 20; TEMP 36.7; O2SAT 100
--- NOTE | 2024-09-19 17:43 | ED_ITS ---
HPI - Back Pain/Injury General Chief Complaint: Back Pain/Injury Stated Complaint: left arm pain Time Seen by Provider: 09/19/24 17:43 Source: patient Mode of arrival: ambulatory Limitations: no limitations History of Present Illness HPI Narrative: 39 yo F presents with L sided upper back pain started yesterday. Denies injury. Pain radiates down to lower back with movement and worse with movement of arm. think i pulled a muscle . Ambulatory with steady gait. No extremity weakness or numbness/tingling. patient has not taking any [id number] medication today to treat her pain. all systems reviewed and negative except as noted above. Related Data Allergies Allergy/AdvReac Type Severity Reaction Status Date / Time No Known Allergies Allergy Verified 09/19/24 17:27 Review of Systems Review of Systems: CONSTITUTIONAL: Denies fever, chills, or sweats. EYES: Denies visual changes, redness, or discharge. ENT: Denies rhinorrhea, congestion, sore throat, or otalgia. CARDIOVASCULAR: Denies chest pain, palpitations, or edema. RESPIRATORY: Denies cough or dyspnea. GASTROINTESTINAL: Denies abdominal pain, nausea, vomiting, or diarrhea. GENITOURINARY: Denies dysuria or hematuria. SKIN: Denies rash or itching. MUSCULOSKELETAL: Reports left upper back pain. Denies joint pain, or myalgia. NEUROLOGIC: Denies headache, numbness, or weakness. PSYCHIATRIC: Denies anxiety or depression. All other systems reviewed are negative, except as documented in HPI. [facility] Past Medical History Medical History No active medical problems Social History Social History Smoking status: Never smoker Alcohol intake: current Substance use: current Substance use type: marijuana Do You Feel Safe in your Home?: Yes Lack of Transportation: No Lack of Food: Sometimes True Current Housing: I Have Housing Concerned About Future Housing: No Difficulty Paying Gas/Electric Bills: No Difficulty Paying for Meds: YES Currently Unemployed: No Education: Trade/Vocational Certificate Difficulty w/ Childcare or Family Care: No Living arrangements: with family Occupation/Education: 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 There is no relevant family history pertinent to the presenting complaint. Exam Narrative: GENERAL: This is a well-nourished, well-developed patient, in no apparent distress. HEAD: normocephalic, atraumatic. EYES: PERRL. Sclera clear/white. Vision is grossly intact. EARS: External ears normal NOSE: External nose normal NECK: Neck supple, non-tender without lymphadenopathy, masses or thyromegaly. CARDIOVASCULAR: Regular rate and rhythm without murmurs, gallops, or rubs. RESPIRATORY: Clear to auscultation. Breath sounds equal bilaterally. No wheezes, rales, or rhonchi. SKIN: warm, Dry, intact with no suspicious lesions or rash, good texture and turgor. NEURO: awake, alert, and oriented to person, place and time. There were no obvious focal neurologic abnormalities. EXTREMITIES: No joint tenderness, effusion, or edema noted. BACK: tenderness to L rhomboid/trapezius on palpation. normal ROM. no midline tenderness. no deformity. Course Course Level of Care: Express Care Visit Vital Signs Vital signs: Vital Signs Temperature 36.7 C 09/19/24 17:37 Pulse Rate 66 09/19/24 17:37 Respiratory Rate 20 09/19/24 17:37 Blood Pressure 130/73 09/19/24 17:37 Pulse Oximetry 100 09/19/24 17:37 Oxygen Delivery Room Air 09/19/24 17:37 Temperature 36.7 C 09/19/24 17:37 Pulse Rate 66 09/19/24 17:37 Respiratory Rate 20 09/19/24 17:37 Blood Pressure 130/73 09/19/24 17:37 Pulse Oximetry 100 09/19/24 17:37 Oxygen Delivery Room Air 09/19/24 17:37 reviewed MDM - Back Pain/Injury MDM Narrative Medical decision making narrative: Will treat muscular back pain with muscle relaxant, prednisone and ibuprofen. Recommend ice, heat, stretching. No neuro deficits at time of discharge. Patient is well-appearing nontoxic. Please be advised this is a medical document. It is intended for [id number] communication. It is written in medical language and may contain unfamiliar abbreviations or verbiage. Medical documents are intended to carry relevant information, facts as evident, and the clinical opinion of the practitioner at the time of the encounter. This report may have been done utilizing a voice recognition system. Attempts have been made to correct errors. However, there may be uncorrected grammatical, spelling, and recognition errors present. The file time of this note does not necessarily represent the time of service. Differential Diagnosis Differential diagnosis: Likely thoracic back pain Discharge Plan Discharge Clinical Impression: Muscle strain of left upper back Qualifiers: Encounter type: initial encounter Qualified Code(s): S29.012A - Strain of muscle and tendon of back wall of thorax, initial encounter Patient Disposition: Home Condition: Stable Instructions: Muscle Strain (ED), Back Pain (ED) Additional Instructions: Take medications as prescribed. Methocarbamol as a muscle relaxant may cause drowsiness. Do not drive while taking this medication. Start prednisone prescription tomorrow morning. Alternate between ice and heat. Do stretching exercises as tolerated. Follow-up with your primary care physician if symptoms are not improving. Patient Language: [place] Prescriptions: New ibuprofen 800 mg tablet 800 mg PO TID PRN (Reason: pain) Qty: 30 0RF prednisone 20 mg tablet See Rx Instructions .ROUTE .COMPLEX Qty: 12 0RF Rx Instructions: Take 3 tablets today, then 2 tablets daily for 3 days then 1 tablet daily for 3 days. methocarbamol 750 mg tablet 750 mg PO Q8H PRN (Reason: muscle pain/spasm) Qty: 30 0RF lidocaine 5 % adhesive patch,medicated 1 patch topical DAILY PRN (Reason: pain) Qty: 15 0RF Rx Instructions: leave on most painful area for up to 12 hrs Follow-up/Referrals: PHYSICIAN NOT ON STAFF,NONSTAFF [Primary Care Provider] - Stand Alone Forms: Work/School Release IP Time of Disposition: 17:54
== END 2024-09-19 18:00 | disposition home or self-care (01) ==
PROVIDERS: Emergency Provider Nurse Practitioner Family
DX: S29.012A Strain of muscle and tendon of back wall of thorax, initial encounter (principal); X58.XXXA Exposure to other specified factors, initial encounter; F12.90 Cannabis use, unspecified, uncomplicated
CPT/HCPCS: 99213; G0463